=== PATIENT | female | born 1975 | race Caucasian/White ===

== ENCOUNTER 2018-05-29 16:48 | Inpatient (IN) | payer OTHER ==
[~2018-05-29] VITALS: Ht 165.1 cm; Wt 76.7 kg
[2018-05-29 16:55] VITALS: BP 116/72
--- NOTE | 2018-05-29 17:00 | NUR ---
AAO X 4 PT WHEEL CHAIR ASSISTED BACK TO THE LOBBY
[2018-05-29] MEDS ORDERED: ACETAMINOPHEN EXTRA STRENGTH 500 MG TAB PO ONE (17:05)
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
[2018-05-29] MEDS ORDERED: CLINDAMYCIN 900 MG in DEXTROSE 5% 100 ML IV ONE (20:20)
[2018-05-29] MEDS ORDERED: VANCOMYCIN 1,000 MG in DEXTROSE 5% 250 ML IV ONE (20:20)
[2018-05-29 20:55] LABS: BASOPHILS % (AUTO) 0.3 % (0.0-2.0); EOSINOPHILS # (AUTO) 0.1 K/uL (0-0.4); EOSINOPHILS % (AUTO) 0.3 % (0.0-4.0); HEMATOCRIT 35.4 % (36-48); HEMOGLOBIN 11.4 g/dL (12.0-16.0); LYMPHOCYTES # (AUTO) 1.9 K/uL (2.5-16.5); LYMPHOCYTES % (AUTO) 10.8 % (20.5-51.1); MEAN CORPUSCULAR HEMOGLOBIN 27 pg (27-31); MEAN CORPUSCULAR HGB CONC 32 g/dL (33-37); MEAN CORPUSCULAR VOLUME 82.5 fL (80-94); MONOCYTES # (AUTO) 1.3 K/uL (0.8-1.0); MONOCYTES % (AUTO) 7.3 % (1.7-9.3); NEUTROPHILS % (AUTO) 81.3 % (42.2-75.2); PLATELET COUNT (AUTO) 229 K/uL (140-450); RED BLOOD CELL COUNT(AUTO) 4.29 MIL/uL (4.20-5.40); RED CELL DISTRIBUTION WIDTH 13.4 % (11.6-13.7); WHITE BLOOD COUNT (AUTO) 17.2 K/uL (4.8-10.8)
[2018-05-29] MEDS ORDERED: CLINDAMYCIN 900 MG/6 ML VIAL IV ONE (20:58)
[2018-05-29] MEDS ORDERED: VANCOMYCIN 1,000 MG VIAL ONE (20:58)
[2018-05-29 21:14] LABS: ANION GAP 12.3 (8-16); CARBON DIOXIDE 27.7 mmol/L (21-32); CREATININE 1.2 mg/dL (0.6-1.3)
--- NOTE | 2018-05-29 21:20 | NUR ---
PT LAYING IN BED, RR EVEN AND UNLABORED. PT REPORTS 7/10 TOLERABLE RLE PAIN AT THIS TIME. ALL NEEDS MET.
[2018-05-29 21:28] LABS: TOTAL BILIRUBIN 0.5 mg/dL (0.0-1.0)
[2018-05-29 21:35] LABS: PROTHROMBIN TIME 10.3 secs (10.8-13.4)
--- NOTE | 2018-05-29 22:37 | NUR ---
PT UNABLE TO VOID AT THIS TIME. UNABLE TO COLLECT URINE SAMPLE.
[2018-05-29] MEDS ORDERED: NACL 0.9% 1,000 ML IV SCH (23:20)
[2018-05-29] MEDS ORDERED: ONDANSETRON 4 MG/2 ML VIAL IVP PRN (23:20)
[2018-05-29] MEDS ORDERED: VANCOMYCIN PER PHARMACY MC PRN (23:20)
[2018-05-29] MEDS ORDERED: CLINDAMYCIN 600 MG in DEXTROSE 5% 50 ML IV ONE (23:20)
[2018-05-30] MEDS ORDERED: KCL 20 MEQ/WATER INJ PREMIX 100 ML IV SCH
--- NOTE | 2018-05-30 | NUR ---
Patient will be admitted to care of DR. PETERSON. Admited to TELE. Will go to room 106A. Belongings list completed. Report to SOFIA ALBARADO
[2018-05-30 00:05] VITALS: BP 111/44
--- NOTE | 2018-05-30 00:05 | NUR ---
RECEIVED PT FROM ER VIA [facility], PT AWAKE,0X4. PT ON TELE. WOUND ASSESSMENT DONE. PT C/O OF PAIN 10/10 SEVERE B LE, MORE ON R LEG DUE TO CELLULITIS. PT AMBULATORY, BUT ABLE TO WALK W/ MIN. ASSISTANCE. FALL RISK PRECAUTION.POC DISCUSSED W/ PT. CALL LIGHT WITHIN REACH. PLACED BED AT LOWEST POSITION.
--- NOTE | 2018-05-30 00:30 | NUR ---
PT HAD FEVER AT 103, MEDICATED W/ TYLENOL ORDERED.
--- NOTE | 2018-05-30 01:00 | NUR ---
WOUND ASSESSMENT DONE
[2018-05-30] MEDS: HYDROcodone/APAP 5/325 MG 1 TAB TAB PO PRN (01:33)
--- NOTE | 2018-05-30 01:33 | NUR ---
PT W/ 03/13 PAIN SEVERE. PAIN MEDS GIVEN PER PAIN PROTOCOL
[2018-05-30] MEDS: ACETAMINOPHEN 325 MG TAB PO PRN ×2 (01:34→13:22)
--- NOTE | 2018-05-30 01:39 | NUR ---
K CHLORIDE JUST STARTED NOW BECAUSE PT ADMITTED TO UNIT AT 12:05 AM .NEEDED TO PREPARE MED MIX
[2018-05-30] MEDS ORDERED: ZOLPIDEM 5 MG TAB PO PRN (01:55)
--- NOTE | 2018-05-30 02:00 | NUR ---
CALLED DR. MONTANO FOR DR. PETERSON. ORDERED NS FOR HYDARATION, AMBIEN, AND CLEOMYCIN 600 MG Q6. CARRIED OUT.
[2018-05-30] MEDS: NACL 0.9% 1,000 ML IV SCH ×2 (02:30→22:30)
[2018-05-30 02:45] LABS: APPEARANCE,URINE CLOUDY (CLEAR); BILIRUBIN,URINE NEGATIVE (NEGATIVE); BLOOD, URINE TRACE-L (NEGATIVE); COLOR,URINE YELLOW (YELLOW); LEUKOCYTE ESTERASE ,URINE NEGATIVE (NEGATIVE); NITRITE, URINE POSITIVE (NEGATIVE); UGLUCOSE NEGATIVE (NEGATIVE)
[2018-05-30 02:47] LABS: HYALINE CASTS, URINE 0-10 /LPF (None Seen); RBC,URINE 3-10 (FEW) /HPF (0-5); WBC,URINE 0-5 (RARE) /HPF (0-5)
[2018-05-30 04:00] VITALS: BP 110/50
[2018-05-30] MEDS ORDERED: INFLUENZA VIRUS VACCINE QUAD 0.5 ML SYR IMVAC PRN (05:15)
[2018-05-30] MEDS ORDERED: PNEUMOCOCCAL VACCINE 23 MCG/0.5 ML VIAL IMVAC PRN (05:15)
[2018-05-30] MEDS ORDERED: CLINDAMYCIN 600 MG in DEXTROSE 5% 50 ML IV SCH (06:00)
--- NOTE | 2018-05-30 07:35 | NUR ---
ENDORSED TO AM SHIFT NURSE FOR CONTINUITY OF CARE. TEMP AT 97.8. PAIN LEVEL DECREASED AT VERBALIZED BY PT. PT ABLE TO MOVE. CHECKED W/ AM SHIFT NURSE SACRAL AREA.NO REDNESS NOTED.
--- NOTE | 2018-05-30 07:35 | NUR ---
RECEIVED PT FROM PM NURSE, PT AWAKE, ALERT. NO S/S OF RESPIRATORY DISTRESS NOTED. PT HAS REDNESS AND SWELLING RIGHT LEG, PT ALSO COMPLAINED PAINFUL WHEN TOUCH RIGHT LEG. PT HAS IV TO RIGHT AC # 18 RUNNING NS AT 50 MLS/HR. PT ALSO HAS OPEN WOUND TO BUTTOCKS, INSTRUCTION GIVEN, TOLD PT TRY TO MOVE HER BODY OFTEN POSSIBLE, ALSO TOLD PT NOT TO SCRATCH WOUND, WASH HANDS, PT VERBALIZED UNDERSTANDING, WILL CONTINUE TO MONITOR.
[2018-05-30 08:00] VITALS: BP 91/53
[2018-05-30 08:05] LABS: BASOPHILS # (AUTO) 0.1 K/uL (0.00-0.22); BASOPHILS % (AUTO) 0.4 % (0.0-2.0); EOSINOPHILS # (AUTO) 0.1 K/uL (0-0.4); EOSINOPHILS % (AUTO) 0.7 % (0.0-4.0); HEMATOCRIT 30.8 % (36-48); HEMOGLOBIN 10.1 g/dL (12.0-16.0); LYMPHOCYTES # (AUTO) 1.4 K/uL (2.5-16.5); LYMPHOCYTES % (AUTO) 10.3 % (20.5-51.1); MEAN CORPUSCULAR HEMOGLOBIN 27 pg (27-31); MEAN CORPUSCULAR HGB CONC 33 g/dL (33-37); MEAN CORPUSCULAR VOLUME 81.9 fL (80-94); MONOCYTES # (AUTO) 1.2 K/uL (0.8-1.0); MONOCYTES % (AUTO) 8.9 % (1.7-9.3); NEUTROPHILS # (AUTO) 10.6 K/uL (1.8-7.7); NEUTROPHILS % (AUTO) 79.7 % (42.2-75.2); PLATELET COUNT (AUTO) 201 K/uL (140-450); RED BLOOD CELL COUNT(AUTO) 3.76 MIL/uL (4.20-5.40); WHITE BLOOD COUNT (AUTO) 13.4 K/uL (4.8-10.8)
--- NOTE | 2018-05-30 08:53 | NUR ---
PATIENT HAS BEEN SCREENED AND CATEGORIZED HIGH NUTRITION RISK. PATIENT WILL BE SEEN WITHIN 1-2 DAYS OF ADMISSION. 05/30/18-05/31/[address]
[2018-05-30 09:19] LABS: ALBUMIN 2.5 g/dL (3.4-5.0); ANION GAP 12.6 (8-16); CARBON DIOXIDE 24.6 mmol/L (21-32); CREATININE 1.1 mg/dL (0.6-1.3); POTASSIUM 3.2 mmol/L (3.5-5.1); TOTAL BILIRUBIN 0.5 mg/dL (0.0-1.0)
[2018-05-30] MEDS ORDERED: POTASSIUM CHLORIDE 10 MEQ TABER PO SCH (11:30)
[2018-05-30] MEDS: CLINDAMYCIN PHOS 600MG/D5W PM 50 ML IV SCH ×3 (11:35→23:53)
[2018-05-30 12:00] VITALS: BP 98/51
--- NOTE | 2018-05-30 13:24 | NUR ---
PT TEMP ORAL 101.1, TYLENOL GIVEN ORDERED. WILL RECHECK.
[2018-05-30] MEDS ORDERED: VANCOMYCIN 1GM/DEXT 5% PREMIX 200 ML IV SCH (15:00)
[2018-05-30] MEDS ORDERED: IBUPROFEN 400 MG TAB PO PRN (15:15)
--- NOTE | 2018-05-30 15:32 | NUR ---
05/30/18 RD INITIAL ASSESSMENT COMPLETED PLEASE REFER TO NUTRITION ASSESSMENT UNDER CARE ACTIVITY FOR ESTIMATED NUTRITIONAL NEEDS. 1. CONTINUE 2GM NA DIET TOLERATED 2. RD PROVIDED EDUCATION ON LOW SODIUM DIET. 3. RECOMMEND RALPH BID FOR WOUND HEALING 4. RD TO FOLLOW-UP 3-5 DAYS, MODERATE RISK RATNA NOEL RD
--- NOTE | 2018-05-30 19:10 | NUR ---
RECD. RESTING IN BED, AWAKE, A/OX4. RESPIRATION EVEN AND UNLABORED. CONVERSING WITH SOMEBODY IN THE CELLPHONE. IV OF NS AT AT 50 ML/HR INFUSING, RIGHT AC G18. RIGHT LEG WITH SWELLING AND REDNESS. USES BSC. PLAN OF CARE FOR THE SHIFT DISCUSSED. VERBALIZED UNDERSTANDING. DENIES PAIN 0/10.
[2018-05-30 20:00] VITALS: BP 95/46
--- NOTE | 2018-05-30 20:00 | NUR ---
Patient's Plan of Care was discussed and reviewed with RESERVOIR ENGINEERING MANAGER: FELICITAS DALAL
[2018-05-31] VITALS: BP 107/62
--- NOTE | 2018-05-31 | NUR ---
SLEEPING COMFORTABLY IN BED.
[2018-05-31] MEDS: HYDROcodone/APAP 5/325 MG 1 TAB TAB PO PRN ×3 (05:21→22:04)
[2018-05-31] MEDS: ACETAMINOPHEN 325 MG TAB PO PRN ×2 (05:21→10:08)
[2018-05-31] MEDS: CLINDAMYCIN PHOS 600MG/D5W PM 50 ML IV SCH ×3 (05:56→17:26)
--- NOTE | 2018-05-31 06:30 | NUR ---
TOLERATED WELL ALL MEDICATIONS GIVEN, SLEEP WELL.
--- NOTE | 2018-05-31 07:25 | NUR ---
CONDITION REMAIN STABLE. ENDORSED TO AM SHIFT NURSE FOR CONTINUITY OF CARE.
--- NOTE | 2018-05-31 07:30 | NUR ---
RECEIVED PT FROM WATER OPERATOR NURSE, PT IS ASLEEP WITH SIDE RAILS UP AND CALL LIGHT WITHIN REACH, FALL PRECAUTION INITIATED, RESPIRATION EVEN. PT HAS AN IV LINE ON THE RT AC G. 18 WITH NS AT 50ML/HR, INFUSING, INTACT. NO SIGN OF DISTRESS NOTED AND WILL CONTINUE TO MONITOR PT.
[2018-05-31 08:00] VITALS: BP 92/62
[2018-05-31 08:58] LABS: BASOPHILS % (AUTO) 0.4 % (0.0-2.0); EOSINOPHILS # (AUTO) 0.3 K/uL (0-0.4); EOSINOPHILS % (AUTO) 2.4 % (0.0-4.0); HEMATOCRIT 29.5 % (36-48); HEMOGLOBIN 9.7 g/dL (12.0-16.0); LYMPHOCYTES # (AUTO) 1.1 K/uL (2.5-16.5); LYMPHOCYTES % (AUTO) 10.8 % (20.5-51.1); MEAN CORPUSCULAR HEMOGLOBIN 27 pg (27-31); MEAN CORPUSCULAR HGB CONC 33 g/dL (33-37); MEAN CORPUSCULAR VOLUME 82.5 fL (80-94); MONOCYTES # (AUTO) 1.3 K/uL (0.8-1.0); NEUTROPHILS # (AUTO) 7.8 K/uL (1.8-7.7); NEUTROPHILS % (AUTO) 74.4 % (42.2-75.2); PLATELET COUNT (AUTO) 179 K/uL (140-450); RED BLOOD CELL COUNT(AUTO) 3.57 MIL/uL (4.20-5.40); RED CELL DISTRIBUTION WIDTH 13.5 % (11.6-13.7); WHITE BLOOD COUNT (AUTO) 10.5 K/uL (4.8-10.8)
[2018-05-31 09:11] LABS: ALBUMIN 2.2 g/dL (3.4-5.0); ANION GAP 12.5 (8-16); CARBON DIOXIDE 25.1 mmol/L (21-32); CREATININE 0.9 mg/dL (0.6-1.3); POTASSIUM 3.6 mmol/L (3.5-5.1); TOTAL BILIRUBIN 0.2 mg/dL (0.0-1.0)
--- NOTE | 2018-05-31 10:13 | NUR ---
PT IS AWAKE AND ELEVATED RT LEG ON A PILLOW, MEDICATIONS GIVEN AND PT TOLERATED IT. NO SIGN OF DISTRESS NOTED AND WILL MONITOR.
--- NOTE | 2018-05-31 10:45 | NUR ---
SPOKE TO DR. PETERSON AND REPORTED ABOUT THE PT'S STATUS, SAID THAT IF PT IS AFEBRILE FOR TWO DAYS, PT CABN BE DISCHARGE, ACKNOWLEDGED AND WQILL CONTINUE TO MONITOR PT.
--- NOTE | 2018-05-31 13:05 | NUR ---
PT IS AWAKE AND [id number] HER LUNCH, FRIEND ON THE BEDSIDE, IV MEDICATION GIVEN AND PT TOLERATED IT. WILL MONITOR PT.
--- NOTE | 2018-05-31 13:45 | NUR ---
WOUND CARE EVALUATION NOTES: REASON FOR EVALUATION: RIGHT LOWER LEG CELLULITIS COMPLETE SKIN ASSESSMENT DONE THIS MORNING WITH THIS 42 Y/O FEMALE PATIENT ADMITTED TO [facility], WITH INITIAL DIAGNOSIS OF FEVER AND RLE CELLULITIS. PAST MEDICAL HISTORY INCLUDE ANXIETY PT HAS PICKING SKIN BEHAVIOR FOR YEARS. ALL ABOVE INFORMATION WAS OBTAINED FROM THE ADMISSION H&P AND PT. SKIN WARM TO TOUCH WNL, NO HAIR GROWTH AND BILATERAL PEDAL PULSES PRESENT. PLAN OF CARE DISCUSSED WITH PT. AND PRIMARY RN. INTEGUMENTARY: -CHRONIC SCABS TO MULTIPLE AREAS (FACE, UPPER AND LOWER EXTREMITIES, LOWER BACK AND BUTTOCKS) BILATERAL HEELS THICK CALLUS -RLE ERYTHEMA, SWELLING AND PAINFUL TO TOUCH. NO ACTIVE OPEN WOUNDS. COVER WITH MULTIPLE DRY SCABS RECOMMENDATIONS: -PAINT MULTIPLE SCABS WITH BETADINE SOLUTION BID AND LEAVE IT OPEN TO AIR. (FACE, UPPER AND LOWER EXTREMITIES, LOWER BACK AND BUTTOCKS) -TURN AND REPOSITION PATIENT Q2H -ASSESS AND MONITOR SKIN CONDITION DURING POSITION CHANGE -OFFLOAD BILATERAL HEELS BY PLACING PILLOWS UNDER CALVES AT ALL TIMES, UNLESS OTHERWISE CONTRAINDICATED -KEEP SKIN CLEAN AND DRY AT ALL TIMES. RECOMMENDATIONS DISCUSSED WITH PRIMARY RN WILL FOLLOW UP PATIENT Q 7 -10 DAYS AND PRN. PLEASE CONTACT WOUND CARE NURSE FOR ANY CONCERNS AND CHANGES IN WOUND CONDITION
--- NOTE | 2018-05-31 15:09 | NUR ---
Scrum Product Owner Note: I faxed inquiries to the following snfs (there is a possibility patient might need snf placement for physical therapy): [facility]
[2018-05-31 16:00] VITALS: BP 98/58
--- NOTE | 2018-05-31 18:00 | NUR ---
PT'S IV LINE WAS INFILTRATED AND ATTEMPTED TO START A NEW LINE TWICE BUT WAS NOT SUCCESSFUL AND PT REFUSED TO HAVE AN INSERTION ALREADY. WILL INFORM UMBRELLA FINISHER NURSE ABOUT PT'S REFUSAL. CLINDAMYCIN WAS NOT STARTED.
[2018-05-31] MEDS: NACL 0.9% 1,000 ML IV SCH (18:30)
--- NOTE | 2018-05-31 19:25 | NUR ---
INFORMED INVERTER AND CLIPPER NURSEONUR THAT PT [id number] TO HAVE A NEW IV LINE STARTED, TOLD INVERTER AND CLIPPER NURSE TO RUN CLINDAMYCIN IV OF PT AND SOFIA MOHR ACKNOWLEDGED.
--- NOTE | 2018-05-31 19:30 | NUR ---
ENDORSED PT TO PATIENT PORTAL REPRESENTATIVE NURSE FOR CONTINUITY OF CARE.
[2018-05-31 20:30] VITALS: BP 96/51
--- NOTE | 2018-05-31 21:30 | NUR ---
Seen pt appears asleep but arousable. Initial assessment done. No IV access right now. Will reinsert new IV. Vital signs checked. T=100.1 Informed pt that she has low grade fever and that she needs to remove extra blanket. Pt said "ok", extra blanket removed. Will continue to monitor. Plan of care discussed. Pt verbalized understanding but needs reinforcement. Safety reinforced. Bed alarm on. Pt aware to call when she wants to get up to use the commode. Attempted to insert IV but not threading and blew. Farrukh, Charge nurse will insert new IV.
--- NOTE | 2018-05-31 22:40 | NUR ---
Seen pt lying in bed trying to go to sleep. Heparin subQ given as ordered w/ teachings. Pt verbalized understanding. Bedside commode present. Will continue to monitor.
--- NOTE | 2018-05-31 23:30 | NUR ---
Pt called and wants to use the commode. Went to see pt and assisted to the commode. ROSEMARY West came and changed pt's linens and gown. Pt kept comfortable.
--- NOTE | 2018-06-01 01:00 | NUR ---
Seen pt asleep. IV medication given as ordered. Pt wants to use the commode. Pt assisted to the bedside commode and back to bed. Pt is unsteady and needs one person assist. Instructed pt to be careful with her IV access. Pillow placed under her rt hand and rt leg. Rt leg left uncovered. Will continue to monitor. Safety reinforced.
[2018-06-01] MEDS: MILD SOAP AND WATER TP SCH ×2 (01:01→12:14)
[2018-06-01] MEDS: CLINDAMYCIN PHOS 600MG/D5W PM 50 ML IV SCH ×4 (01:01→17:25)
[2018-06-01 04:05] VITALS: BP 96/56
--- NOTE | 2018-06-01 04:05 | NUR ---
SEEN PT SLEEPING SOUNDLY. VITAL SIGNS CHECKED. PT DENIES ANY DISCOMFORT. SAFETY REINFORCED. BED ALARM ON. CALL LIGHT W/IN REACH.
--- NOTE | 2018-06-01 06:30 | NUR ---
PT WANTS TO USE THE COMMODE. ASSISTED PT TO THE COMMODE AND BACK TO BED. PT'S RT LEG ELEVATED OVER PILLOW. PT ASKED FOR STRAW AND WATER TO DRINK. PT DENIES ANY NEEDS. PT KEPT COMFORTABLE. BED ALARM ON. CALL LIGHT W/IN REACH.
--- NOTE | 2018-06-01 07:25 | NUR ---
RECEIVED REPORT FROM NIGHT RN. PT RESTING IN BED. AAOX4. NO S/S OF ACUTE DISTRESS. PT DENIES PAIN. IV SITE PATENT AND INTACT. CALL LIGHT WITHIN REACH. SAFETY MEASURES ENSURED. WILL CONTINUE TO MONITOR.
[2018-06-01 07:46] LABS: BASOPHILS # (AUTO) 0.1 K/uL (0.00-0.22); HEMOGLOBIN 9.6 g/dL (12.0-16.0)
[2018-06-01 07:52] LABS: BASOPHILS % (AUTO) 0.3 % (0.0-2.0); EOSINOPHILS # (AUTO) 0.7 K/uL (0-0.4); EOSINOPHILS % (AUTO) 3.8 % (0.0-4.0); HEMATOCRIT 29.8 % (36-48); LYMPHOCYTES # (AUTO) 2.6 K/uL (2.5-16.5); LYMPHOCYTES % (AUTO) 14.9 % (20.5-51.1); MEAN CORPUSCULAR HEMOGLOBIN 27 pg (27-31); MEAN CORPUSCULAR HGB CONC 32 g/dL (33-37); MEAN CORPUSCULAR VOLUME 83.1 fL (80-94); MONOCYTES # (AUTO) 1.4 K/uL (0.8-1.0); MONOCYTES % (AUTO) 7.9 % (1.7-9.3); NEUTROPHILS # (AUTO) 12.7 K/uL (1.8-7.7); NEUTROPHILS % (AUTO) 73.1 % (42.2-75.2); PLATELET COUNT (AUTO) 246 K/uL (140-450); RED BLOOD CELL COUNT(AUTO) 3.58 MIL/uL (4.20-5.40); RED CELL DISTRIBUTION WIDTH 13.5 % (11.6-13.7); WHITE BLOOD COUNT (AUTO) 17.4 K/uL (4.8-10.8)
[2018-06-01 08:00] VITALS: BP 112/54
[2018-06-01 08:34] LABS: ALBUMIN 2.2 g/dL (3.4-5.0); ANION GAP 16.5 (8-16); CARBON DIOXIDE 24.3 mmol/L (21-32); CREATININE 0.8 mg/dL (0.6-1.3); POTASSIUM 3.8 mmol/L (3.5-5.1); TOTAL BILIRUBIN 0.4 mg/dL (0.0-1.0)
[2018-06-01] MEDS: ACETAMINOPHEN 325 MG TAB PO PRN ×2 (09:15→20:29)
[2018-06-01] MEDS: HYDROcodone/APAP 5/325 MG 1 TAB TAB PO PRN ×2 (09:18→20:30)
--- NOTE | 2018-06-01 14:10 | NUR ---
PATIENT RESTING IN BED. NO S/S OF ACUTE DISTRESS. PT DENIES PAIN. IV SITE PATENT AND INTACT. CALL LIGHT WITHIN REACH. SAFETY MEASURES ENSURED. WILL CONTINUE TO MONITOR.
[2018-06-01] MEDS: NACL 0.9% 1,000 ML IV SCH ×2 (14:30→21:57)
[2018-06-01 16:00] VITALS: BP 105/50
--- NOTE | 2018-06-01 16:11 | NUR ---
PT RESTING IN BED. NO S/S OF ACUTE DISTRESS. PT DENIES PAIN. CALL LIGHT WITHIN REACH. SAFETY MEASURES ENSURED. WILL CONTINUE TO MONITOR.
--- NOTE | 2018-06-01 19:05 | NUR ---
RECD. SLEEPING IN BED, BUT EASILY AROUSABLE. RESPIRATION EVEN AND UNLABORED. IV OF NS AT 50 ML/HR INFUSING, RIGHT HAND G22. RIGHT LOWER EXTREMITY STILL WITH REDNESS AND SWELLING, NOTED SOME SCABS ON THE LEGS. USES BSC. SAFETY MEASURES ENFORCED. DENIES PAIN 0/10.
[2018-06-01 20:00] VITALS: BP 110/52
--- NOTE | 2018-06-01 20:00 | NUR ---
Patient's Plan of Care was discussed and reviewed with RECORDS TECH: FELICITAS DALAL, WILL CONTINUE WITH CURRENT PLAN OF CARE.
--- NOTE | 2018-06-01 20:15 | NUR ---
ENCOURAGED TO PUT RIGHT LOWER EXTREMITY ON A PILLOW, ELEVATED ALWAYS.
--- NOTE | 2018-06-01 20:30 | NUR ---
USES THE BSC TO VOID. BACK TO BED AFTER VOIDING.
--- NOTE | 2018-06-01 20:34 | NUR ---
DUE MEDICATION FOR THE NIGHT GIVEN. WARM DINNER PLATE AND ATE 70% OF HER DINNER. ENCOURAGED TO TURN ALTERNATELY TO SIDES.
--- NOTE | 2018-06-02 | NUR ---
SLEEPING COMFORTABLY IN BED.
[2018-06-02] MEDS: CLINDAMYCIN PHOS 600MG/D5W PM 50 ML IV SCH ×4 (00:36→17:16)
[2018-06-02] MEDS: MILD SOAP AND WATER TP SCH ×2 (01:00→12:35)
--- NOTE | 2018-06-02 07:00 | NUR ---
ABLE TO SLEEP WELL. CONDITION REMAIN STABLE. WILL ENDORSE TO AM NURSE FOR CONTINUITY OF CARE.
[2018-06-02 08:00] VITALS: BP 115/66
--- NOTE | 2018-06-02 08:00 | NUR ---
RECEIVED REPORT FROM YIELD LOSS INSPECTOR RN. PT A/O X4. VERBALIZES NEEDS. SKIN DRY AND WARM TO TOUCH. AFEBRILE. REDNESS ON FACE NOTED. IN ROOM AIR SAT 96%. LUNGS WHEEZES B/L. HAS COUGH WITH GREENISH PHLEGM. PERIPHERAL LINE ON RIGHT HAND 22G. INTACT LINE. NS RUNNING AT 50 ML/HR. ABDOMEN SOFT ROUND AND NON-TENDER. ACTIVE BOWEL SOUND. RIGHT LEG CELLULITIS NOTED. REDNESS AND SWOLLEN LEG. PITTING EDEMA ON BLE. KEPT BLE ELEVATED. KEPT HOB ELEVATED. BED IN LOW POSITION LOCKED. WILL CONTINUE TO MONITOR.
[2018-06-02 08:22] LABS: BASOPHILS # (AUTO) 0.1 K/uL (0.00-0.22); BASOPHILS % (AUTO) 0.6 % (0.0-2.0); EOSINOPHILS # (AUTO) 0.6 K/uL (0-0.4); EOSINOPHILS % (AUTO) 5.2 % (0.0-4.0); HEMATOCRIT 29.2 % (36-48); HEMOGLOBIN 9.5 g/dL (12.0-16.0); LYMPHOCYTES # (AUTO) 2.1 K/uL (2.5-16.5); LYMPHOCYTES % (AUTO) 18.9 % (20.5-51.1); MEAN CORPUSCULAR HEMOGLOBIN 27 pg (27-31); MEAN CORPUSCULAR HGB CONC 33 g/dL (33-37); MEAN CORPUSCULAR VOLUME 83.7 fL (80-94); MONOCYTES % (AUTO) 9.1 % (1.7-9.3); NEUTROPHILS # (AUTO) 7.3 K/uL (1.8-7.7); NEUTROPHILS % (AUTO) 66.2 % (42.2-75.2); PLATELET COUNT (AUTO) 289 K/uL (140-450); RED BLOOD CELL COUNT(AUTO) 3.49 MIL/uL (4.20-5.40); RED CELL DISTRIBUTION WIDTH 13.6 % (11.6-13.7)
[2018-06-02 09:23] LABS: ALBUMIN 2.1 g/dL (3.4-5.0); CREATININE 0.8 mg/dL (0.6-1.3); POTASSIUM 3.9 mmol/L (3.5-5.1); TOTAL BILIRUBIN 0.2 mg/dL (0.0-1.0)
[2018-06-02] MEDS: LEVOFLOXACIN 500 MG TAB PO SCH (09:31)
[2018-06-02 09:45] LABS: ANION GAP 12.6 (8-16); CARBON DIOXIDE 27.3 mmol/L (21-32)
[2018-06-02] MEDS: NACL 0.9% 1,000 ML IV SCH (10:30)
[2018-06-02] MEDS ORDERED: BENZONATATE 100 MG CAPLF PO PRN (10:45)
--- NOTE | 2018-06-02 11:00 | NUR ---
DR. PETERSON MADE AWARE ABOUT PT COUGH AND REQUESTING FOR CHEST X-RAY. WILL FOLLOW UP ON ORDER.
--- NOTE | 2018-06-02 12:35 | NUR ---
ADMINISTERED MEDS ORDERED. PT REFUSED BETADINE PAIN ON FACE, UPPER EXTREMITIES AND LOWER BACK.
--- NOTE | 2018-06-02 13:28 | NUR ---
VS STABLE. NO CHANGE IN LOC. WILL CONTINUE TO MONITOR.
--- NOTE | 2018-06-02 13:37 | NUR ---
MERYL FROM [facility] CALLED AND HE SAID PATIENT IS ACCEPTED, PAGED DR. PETERSON, HE SAID PATIENT IS NOT READY AT THIS TIME. WILL NOTIFY [facility].
--- NOTE | 2018-06-02 13:41 | NUR ---
CALLED MERYL AGAIN AND MADE AWARE THAT PATIENT IS NOT READY TO DISCHARGE YET. HE GAVE ROOM NUMBER [id number] AND DR. MONTANO IS THE ACCEPTING MD REPORT TO [phone].
--- NOTE | 2018-06-02 16:25 | NUR ---
PT RESTING IN BED. A/O X4. VERBALIZES NEEDS. WOUND DEBRIDEMENT ON PROCESS. NO C/O PAIN. ADMINISTERED SCHEDULED MEDS. TOLERATING WELL. BP WNL. Addendum: 06/02/18 at 1626 by Angela Davis RN WRONG PT CHARTING
--- NOTE | 2018-06-02 16:27 | NUR ---
SLEEPING AT THIS TIME. REDNESS ON FACE SAME. DRY SCABS ON BLE. REDNESS AND SWOLLEN RIGHT LOWER EXTREMITY. KEPT EXTREMITY ELEVATED. VS WNL. NS RUNNING AT 50 ML/HR.
--- NOTE | 2018-06-02 16:31 | NUR ---
NO C/O PAIN AT THIS TIME.
[2018-06-02 16:33] VITALS: BP 122/58
--- NOTE | 2018-06-02 17:53 | NUR ---
PT VERBALIZED FEELING BETTER. ABLE TO MOVE AND LIFT RIGHT LEG W/O ASSISTANCE. NO C/O PAIN AT THIS TIME.
--- NOTE | 2018-06-02 19:24 | NUR ---
REPORT GIVEN TO ENVIRONMENTAL SERVICES WORKER RN FOR CONTINUITY OF CARE. PT STABLE.
--- NOTE | 2018-06-02 19:25 | NUR ---
RECD. RESTING IN BED, SLEEPING. BUT ANSWERS WHEN ASKED HOW SHE IS TONIGHT. RESPIRATION EVEN AND UNLABORED. IV OF NS AT 50 ML/HR INFUSING, RIGHT HAND G22. RIGHT LEG STILL WITH SWELLING AND REDNESS, NOTED SOME SCABS IN IT. USES BSC. SAFETY MEASURES ENFORCED. DENIES PAIN AT THIS TIME 0/10.
--- NOTE | 2018-06-02 20:00 | NUR ---
Patient's Plan of Care was discussed and reviewed with TECHNICAL SPECIALIST CYTOGENETICS: Rachelle DALAL
[2018-06-03] VITALS: BP 125/60
--- NOTE | 2018-06-03 | NUR ---
SLEEPING COMFORTABLY IN BED.
[2018-06-03] MEDS: MILD SOAP AND WATER TP SCH ×2 (01:00→12:45)
[2018-06-03] MEDS: NACL 0.9% 1,000 ML IV SCH ×2 (02:57→06:30)
--- NOTE | 2018-06-03 04:00 | NUR ---
USES BSC, SAFETY MAINTAINED.
[2018-06-03] MEDS: CLINDAMYCIN PHOS 600MG/D5W PM 50 ML IV SCH ×2 (06:00)
--- NOTE | 2018-06-03 06:00 | NUR ---
ACCIDENTALLY PULLED OUT IV WHEN GETTING OUT OF BED.
--- NOTE | 2018-06-03 06:50 | NUR ---
NEW IV LINE INSERTED BY SOFIA BARBA AT THE LEFT HAND G22. CONDITION REMAIN STABLE. WILL ENDORSE TO AM NURSE FOR CONTINUITY OF CARE.
--- NOTE | 2018-06-03 07:30 | NUR ---
CONDITION REMAIN STABLE. ENDORSED TO AM SHIFT NURSE FOR CONTINUITY OF CARE.
--- NOTE | 2018-06-03 07:35 | NUR ---
RECEIVED BEDSIDE REPORT FROM PATTERN LAYOUT WORKER LEEANNE. PT A/O X4, DROWSY. SKIN WARM AND DRY TO TOUCH. RLE CELLULITIS. 2+ PITTING EDEMA. PEDAL PULSES PRESENT BILATERALLY. DRY SCABS NOTED ALL OVER BODY. AFEBRILE. RESPIRATIONS EVEN AND UNLABORED. HEART RHYTHM REGULAR. NO C/O PAIN OR DISCOMFORT AT THIS TIME. PT RESTING COMFORTABLY IN BED. IV SITE PATENT AND ASYMPTOMATIC, INFUSING IVF PER MD ORDERS. ALL SAFETY PRECAUTIONS IN PLACE, WILL CONTINUE TO MONITOR.
[2018-06-03 08:00] VITALS: BP 117/68
--- NOTE | 2018-06-03 09:18 | NUR ---
CITY ASSESSOR TO VERIFY IF CONTACT PRECAUTIONS NECESSARY FOR THIS PATIENT.
[2018-06-03] MEDS: LEVOFLOXACIN 500 MG TAB PO SCH (10:32)
[2018-06-03] MEDS ORDERED: ACET-9525 PO (11:04)
[2018-06-03] MEDS ORDERED: CLIN300C2 PO (11:04)
[2018-06-03] MEDS ORDERED: LEVO500T2 PO (11:04)
[2018-06-03] MEDS ORDERED: ACET-1182 PO (11:04)
[2018-06-03] MEDS ORDERED: BENZ100C6 PO (11:04)
--- NOTE | 2018-06-03 11:23 | NUR ---
PER HIGH SCHOOL LEARNING SUPPORT TEACHER, PT TO REMAIN ON STD PRECAUTIONS.
--- NOTE | 2018-06-03 11:36 | NUR ---
Adoption Agent Note: Per Melony from [facility] , patient may go to room 213b at their facility today after 2pm, accepting physician is , mattress spring encaser Veronica maciel aware.
[2018-06-03] MEDS ORDERED: CLINDAMYCIN PHOS 600MG/D5W PM 50 ML IV SCH (12:00)
[2018-06-03 12:40] LABS: BASOPHILS % (AUTO) 0.4 % (0.0-2.0); EOSINOPHILS # (AUTO) 0.5 K/uL (0-0.4); EOSINOPHILS % (AUTO) 4.9 % (0.0-4.0); HEMATOCRIT 33.4 % (36-48); HEMOGLOBIN 10.7 g/dL (12.0-16.0); LYMPHOCYTES # (AUTO) 1.7 K/uL (2.5-16.5); LYMPHOCYTES % (AUTO) 15.6 % (20.5-51.1); MEAN CORPUSCULAR HEMOGLOBIN 27 pg (27-31); MEAN CORPUSCULAR HGB CONC 32 g/dL (33-37); MEAN CORPUSCULAR VOLUME 82.8 fL (80-94); MONOCYTES # (AUTO) 0.9 K/uL (0.8-1.0); MONOCYTES % (AUTO) 8.5 % (1.7-9.3); NEUTROPHILS # (AUTO) 7.5 K/uL (1.8-7.7); NEUTROPHILS % (AUTO) 70.6 % (42.2-75.2); PLATELET COUNT (AUTO) 404 K/uL (140-450); RED BLOOD CELL COUNT(AUTO) 4.03 MIL/uL (4.20-5.40); RED CELL DISTRIBUTION WIDTH 13.5 % (11.6-13.7); WHITE BLOOD COUNT (AUTO) 10.7 K/uL (4.8-10.8)
--- NOTE | 2018-06-03 13:15 | NUR ---
PT SLEEPING IN BED, AROUSABLE BY VOICE. NO C/O PAIN OR DISCOMFORT. WILL CONTINUE TO MONITOR.
--- NOTE | 2018-06-03 13:49 | NUR ---
SPOKE WITH MARGARITO BLACKDRAFTER NURSE FROM [place] THE AUTH FOR [facility] IS [id number].. THE AUTH [facility] IS [id number]. MARGARITO BLACKDRAFTER NURSE TO CALL FOR TRANSPORT. Addendum: 06/03/18 at 1613 by Veronica Lee CM ELYSIA IS FROM [facility].
--- NOTE | 2018-06-03 15:18 | NUR ---
PT REFUSING FLU VACCINE, STATES SHE RECEIVED IT "LAST MONTH".
--- NOTE | 2018-06-03 15:20 | NUR ---
DISCHARGE PAPERWORK GIVEN TO PATIENT. PT EDUCATED ON NEW PRESCRIPTIONS AND MED RECONCILIATION TEACHING GIVEN. PT WILL BE ACCEPTED BY DR. MONTANO AT [facility] AND WILL HAVE PHYSICAL THERAPY THERE. PT VERBALIZED COMPLETE UNDERSTANDING OF ALL D/C TEACHING. IV SITE REMOVED WITH MINIMAL BLOOD LOSS AND LUMEN COMPLETELY INTACT. ID BANDS REMOVED. PT WISHES TO GET DRESSED IN OWN CLOTHES. ALL PERSONAL BELONGINGS WITH PATIENT. BEING PICKED UP BY [facility] IN STABLE CONDITION. Addendum: 06/03/18 at 1923 by Britni Taylor Meng, RN OFFERED TO THEOLOGY TEACHER TO NOTIFY IN CHART BUT PT REFUSED AND STATES SHE WANTS TO CALL HER BOYFRIEND TO NOTIFY HIM OF TRANSFER. PHOTO TAKEN OF RLE. REFUSED PHOTO OF RIGHT BUTTOCK.
--- NOTE | 2018-06-03 15:32 | NUR ---
NO ONE ANSWERING PHONE ON UNIT AT [facility] TO TAKE REPORT. PER GABBI AT [facility], SHIFT CHANGE IS OCCURRING AND INSTRUCTED ME TO CALL BACK IN 30 MINUTES.
--- NOTE | 2018-06-03 16:22 | NUR ---
REPORT GIVEN TO LANDEN BLACK AT [facility]. REVIEWED PT DX, LABS, IMAGING, TX PLAN. LANDEN RN VERBALIZED COMPLETE UNDERSTANDING. DISCHARGE MEDICATIONS FAXED TO [facility] PER LANDEN BLACK REQUEST.
== END 2018-06-03 15:20 | DRG 720 ==
LOC: MED 16:48 → MTU 23:20
PROVIDERS: ADMIT Internal Medicine Pulmonary Disease; ATTEND Internal Medicine Pulmonary Disease
DX: A41.9 Sepsis, unspecified organism (principal); E87.8 Other disorders of electrolyte and fluid balance, not elsewhere classified; E44.1 Mild protein-calorie malnutrition; L03.115 Cellulitis of right lower limb; F17.210 Nicotine dependence, cigarettes, uncomplicated; F41.9 Anxiety disorder, unspecified; E87.1 Hypo-osmolality and hyponatremia; E87.6 Hypokalemia; B96.20 Unspecified Escherichia coli [E. coli] as the cause of diseases classified elsewhere; B95.61 Methicillin susceptible Staphylococcus aureus infection as the cause of diseases classified elsewhere; B95.0 Streptococcus, group A, as the cause of diseases classified elsewhere; J20.9 Acute bronchitis, unspecified; Z59.0 Homelessness; Z88.0 Allergy status to penicillin; Z68.28 Body mass index [BMI] 28.0-28.9, adult
CPT/HCPCS: 36415; 71045; 73701; 80053; 80202; 81001; 83605; 83690; 84703; 85025; 85610; 85730; 87040; 87070; 87081; 87186; 87804; 96365; 96375; 97530; 99285; J1644; J3370; J3480; J3490; J7030; J7060; Q0092; Q9967

== ENCOUNTER 2020-01-26 18:40 | Emergency (ER) | payer OTHER ==
[~2020-01-26] VITALS: Ht 165.1 cm; Wt 77.1 kg
[~2020-01-26 18:40] MED LIST: ACET-1182 PO; ACET-9525 PO; BENZ100C6 PO; CLIN300C2 PO; LEVO500T2 PO
[2020-01-26 18:45] VITALS: BP 109/83
--- NOTE | 2020-01-26 19:04 | NUR ---
PT AMB TO BED 5
[2020-01-26] MEDS ORDERED: levoFLOXacin 750 MG TAB PO ONE (19:30)
--- NOTE | 2020-01-26 19:38 | NUR ---
PT STATES SHE NOTICED REDNESS SWELLIG AND PAIN TO LEFT LEG X 1 WEEK THAT HAS GOTTEN PROGRESSIVELY WORSE. SKIN IS WARM TO TOUCH, INTACT, +3 EDEMA, RED AND SWOLLEN. PT AFEBRILE, NO SOB, NO N/V/D. PT DENIES ANY PRIOR HX. ALLERGY - PCN DENIES HX
[2020-01-26] MEDS ORDERED: IBUPROFEN 800 MG TAB PO ONE (20:10)
[2020-01-26 20:14] VITALS: BP 109/83
--- NOTE | 2020-01-26 20:15 | NUR ---
Patient discharged with v/s stable. Written and verbal after care instructions given and explained. Patient alert, oriented and verbalized understanding of instructions. Ambulatory with steady gait. All questions addressed prior to discharge. ID band removed. Patient advised to follow up with PMD. Rx of IBUPROFEN AND LEVAQUIN given. Patient educated on indication of medication including possible reaction and side effects. Opportunity to ask questions provided and answered.
== END 2020-01-26 20:12 | disposition home or self-care (01) ==
LOC: MED 18:40
DX: L03.116 Cellulitis of left lower limb (principal); F17.210 Nicotine dependence, cigarettes, uncomplicated; Z88.0 Allergy status to penicillin; Z79.899 Other long term (current) drug therapy; Z71.6 Tobacco abuse counseling
CPT/HCPCS: 99283

== ENCOUNTER 2020-04-11 16:06 | Emergency (ER) | payer OTHER ==
[~2020-04-11] VITALS: Ht 167.6 cm; Wt 102.5 kg
[2020-04-11 16:17] VITALS: BP 152/98
--- NOTE | 2020-04-11 16:25 | NUR ---
PATIENT PRESENTS TO ED WITH C/O PAIN, RIGHT LOWER EXTREMITY WITH MULTIPLE ULCERS AND RED AREAS WITH SWELLING. . PT STATES SHE WAS SEEN HERE IN JANUARY AND HAS BEEN GETTING BETTER . DENIES N/V/D; SKIN IS PINK/WARM/DRY; AAOX4 WITH EVEN AND STEADY GAIT; LUNGS CLEAR BL; HR EVEN AND REGULAR; PT DENIES ANY FEVER, CP, SOB, OR COUGH AT THIS TIME; PATIENT STATES PAIN OF 0/10 AT THIS TIME; VSS; PATIENT POSITIONED FOR COMFORT; HOB ELEVATED; BEDRAILS UP X2; BED DOWN. ER MD MADE AWARE OF PT STATUS.
[2020-04-11] MEDS ORDERED: ACETAMINOPHEN EXTRA STRENGTH 500 MG TAB PO ONE (16:40)
[2020-04-11] MEDS ORDERED: IBUPROFEN 600 MG TAB PO ONE (16:40)
[2020-04-11] MEDS ORDERED: BACITRACIN OINT 500 UNITS/GM PKT TP ONE (16:40)
[2020-04-11 17:07] VITALS: BP 152/98
--- NOTE | 2020-04-11 17:08 | NUR ---
Patient discharged with v/s stable. Written and verbal after care instructions given and explained. Patient alert, oriented and verbalized understanding of instructions. Ambulatory with steady gait. All questions addressed prior to discharge. ID band removed. Patient advised to follow up with PMD. Rx of BACITRACIN & CLINDAMYCIN given. Patient educated on indication of medication including possible reaction and side effects. Opportunity to ask questions provided and answered.
== END 2020-04-11 17:08 | disposition home or self-care (01) ==
LOC: MED 16:06
DX: M79.604 Pain in right leg (principal); F17.210 Nicotine dependence, cigarettes, uncomplicated; Z88.0 Allergy status to penicillin; Z79.899 Other long term (current) drug therapy
CPT/HCPCS: 82948; 99283

== ENCOUNTER 2020-10-11 19:34 | Emergency (ER) | payer OTHER ==
[~2020-10-11] VITALS: Ht 165.1 cm; Wt 115.2 kg
[2020-10-11 19:43] VITALS: BP 138/93
--- NOTE | 2020-10-11 19:45 | NUR ---
pt ambulated to bed 3
--- NOTE | 2020-10-11 19:50 | NUR ---
45/F BIB self complaining of aching/throbbing right leg pain x 4 days. Swelling and redness noted upon assessment. Pt noted with some scabs and popped blisters as well. Pt states she can still walk normally. Denies any fever, nausea, vomiting, diarrhea, cough, chest pain. med hx: denies allergies: penicillins
--- NOTE | 2020-10-11 20:24 | NUR ---
Dr. Gong examining patient.
[2020-10-11] MEDS ORDERED: IBUP-1842 PO (20:32)
[2020-10-11] MEDS ORDERED: CLIN300C2 PO (20:32)
[2020-10-11] MEDS: IBUPROFEN 400 MG TAB PO ONE (20:42)
[2020-10-11 21:00] VITALS: BP 138/93
--- NOTE | 2020-10-11 21:00 | NUR ---
Patient discharged with v/s stable. Written and verbal after care instructions given and explained. Patient alert, oriented and verbalized understanding of instructions. Ambulatory with steady gait. All questions addressed prior to discharge. ID band removed. Patient advised to follow up with PMD. Rx of Cleocin, Motrin given. Patient educated on indication of medication including possible reaction and side effects. Opportunity to ask questions provided and answered.
== END 2020-10-11 21:00 | disposition home or self-care (01) ==
LOC: MED 19:34
DX: L03.115 Cellulitis of right lower limb (principal); F17.210 Nicotine dependence, cigarettes, uncomplicated; Z88.0 Allergy status to penicillin
CPT/HCPCS: 90471; 90715; 99283